=== PATIENT | female | born 1955 | race Caucasian/White ===

== ENCOUNTER 2023-03-18 14:10 | Outpatient (CLI) | payer MEDICARE, MEDICAID ==
--- NOTE | 2023-03-19 12:37 | Mammography Report ---
BILATERAL DIGITAL SCREENING MAMMOGRAM: 03/18/2023 CLINICAL: Routine screening. Comparison is made to exam dated: 02/26/2022 mammogram - [facility]. There are scattered areas of fibroglandular density in both breasts (category b / 25%-50% glandular t issue). There are benign calcifications in both breasts. No significant masses, calcifications, or other findings are seen in either breast. There has been no significant interval change. IMPRESSION: BENIGN There is no mammographic evidence of malignancy. A 1 year screening mammogram is recommended. Based on the Tyrer Cuzick model (a risk assessment model) the patients lifetime risk is 7.6% and her 10 year risk is 4.0%. According to the ACR, ACS, and NCCN guidelines, an annual breast MRI exam jesus g with mammogram is recommended if the patients lifetime risk is 20% or greater. This exam was interpreted at Station ID: [id number]. NOTE: For mammograms, a report in lay terms will be sent to the patient. Approximately 15% of breast malignancies will not be visualized mammographically. In the management of a palpable breast mass, a negative mammogram must not discourage biopsy of a clinically suspicious lesion. Electronically Signed By: Onur Dudley M.D. [email or web address]:03/18/2023 16:01:18 letter sent: No_Letter ACR BI-RADS Category 2: Benign Finding(s) 3342F PARENCHYMAL PATTERN: (A) - The breast(s) demonstrate(s) scattered fibroglandular densities. BI-RADS CATEGORY: (2) - 2 Mammogram [id number] 1 year screening LATERALITY: (B)
== END 2023-03-18 14:11 | disposition home or self-care (01) ==
LOC: DI.N 14:10
PROVIDERS: ATTEND Internal Medicine
DX: Z12.31 Encounter for screening mammogram for malignant neoplasm of breast (principal)

== ENCOUNTER 2024-03-10 10:24 | Outpatient (CLI) | payer MEDICARE, MEDICAID ==
--- NOTE | 2024-03-11 15:34 | Mammography Report ---
BILATERAL DIGITAL SCREENING MAMMOGRAM: 03/10/2024 CLINICAL: Routine screening. Comparison is made to exams dated: 03/18/2023 mammogram and 02/26/2022 mammogram - [facility]. There are scattered areas of fibroglandular density in both breasts (category b / 25%-50% glandular t issue). There are benign calcifications in both breasts. No significant masses, calcifications, or other findings are seen in either breast. There has been no significant interval change. IMPRESSION: BENIGN There is no mammographic evidence of malignancy. A 1 year screening mammogram is recommended. Based on the Tyrer Cuzick model (a risk assessment model) the patient's lifetime risk is 7.6% and her 10 year risk is 4.0%. According to the ACR, ACS, and NCCN guidelines, an annual breast MRI exam jesus g with mammogram is recommended if the patient's lifetime risk is 20% or greater. This exam was interpreted at Station ID: [id number]. NOTE: For mammograms, a report in lay terms will be sent to the patient. Approximately 15% of breast malignancies will not be visualized mammographically. In the management of a palpable breast mass, a negative mammogram must not discourage biopsy of a clinically suspicious lesion. Electronically Signed By: Heena love/traci:03/10/2024 15:46:02 letter sent: No_Letter ACR BI-RADS Category 2: Benign Finding(s) 3342F PARENCHYMAL PATTERN: (A) - The breast(s) demonstrate(s) scattered fibroglandular densities. BI-RADS CATEGORY: (2) - 2 RECOMMENDATION: (ANNUAL) - Recommend routine annual screening mammography. [id number] 1 year screening LATERALITY: (B)
== END 2024-03-10 10:25 | disposition home or self-care (01) ==
LOC: DI.N 10:24
PROVIDERS: ATTEND Internal Medicine
DX: Z12.31 Encounter for screening mammogram for malignant neoplasm of breast (principal); R92.323 Mammographic fibroglandular density, bilateral breasts

== ENCOUNTER 2024-08-11 15:54 | Inpatient (IN) ==
--- NOTE | 2024-08-11 16:01 | ED Physician Documentation ---
History of Present Illness Stated complaint Stated Complaint: LETHARGIC/CONFUSED Chief complaint Chief Complaint: Neuro History obtained from History obtained from: Patient and EMS Additonal information Additional information: 69-year-old woman with history of CAD a NANCY, dementia, depression, asthma and anxiety started Keflex yesterday for a UTI. [facility] and was quite sleepy and lethargic to the point where at 1 point they could not arouse her with a sternal rub. She is also more confused than normal. She is wheelchair-bound due to "weak legs." [place] Coma Scale Assess Eye opening: Spontaneous Verbal response: Confused Motor response: Obeys Commands Total score: 14 Meds/Allgy Home Medications Ambulatory Orders Medication Instructions Recorded Confirmed pravastatin 10 mg tablet 10 mg PO QDAY #90 tabs 05/19/24 08/10/24 acetaminophen 325 mg capsule 325 mg PO Q4H PRN fever or pain 07/28/24 08/10/24 albuterol sulfate 90 mcg/actuation 2 inh inhalation Q6H PRN shortness 07/28/24 08/10/24 breath activated powder inhaler of breath or wheezing cholecalciferol (vitamin D3) 25 25 mcg PO QDAY 07/28/24 08/10/24 mcg (1,000 unit) capsule cranberry extract 200 mg capsule 200 mg PO BID 07/28/24 08/10/24 diclofenac sodium 1 % topical gel 4 g topical QID 07/28/24 08/10/24 (Arthritis Pain (diclofenac)) donepezil 10 mg disintegrating 10 mg PO QDAY 07/28/24 08/10/24 tablet escitalopram oxalate 5 mg tablet 5 mg PO QDAY 07/28/24 08/10/24 hydroxyzine pamoate 25 mg capsule 25 mg PO BID PRN itching 07/28/24 08/10/24 (Vistaril) loperamide 1 mg/5 mL oral liquid 3 mg PO Q4H PRN loose stool 07/28/24 08/10/24 loratadine 10 mg disintegrating 10 mg PO QDAY 07/28/24 08/10/24 tablet promethazine 12.5 mg tablet 12.5 mg PO Q6H PRN nausea and 07/28/24 08/10/24 vomiting quetiapine 25 mg tablet 25 mg PO BID 07/28/24 08/10/24 cephalexin 500 mg capsule 500 mg PO BID 7 days #14 caps 08/10/24 08/10/24 Allergies Allergies Allergy/AdvReac Type Severity Reaction Status Date / Time Milk Containing Products Allergy Unknown Unknown Verified 08/11/24 16:09 (Dairy) soy Allergy Unknown Unknown Verified 08/11/24 16:09 ON LICENSE OF [facility] Medical History Medical History (Updated 08/11/24 @ 17:14 by Gilberto Olguin MD) Asthma Anxiety Obesity, class 3 Dementia in other diseases classified elsewhere, severe, with agitation Hyperlipidemia Depression, major, recurrent Urinary incontinence CADASIL (cerebral autosomal dominant arteriopathy with subcortical infarcts and leukoencephalopathy) Surgical History Surgical History (Updated 08/05/24 @ 14:30 by VASILE Alas) History of tonsillectomy History of cataract surgery (~2021) bilateral History of lithotripsy Family History Family History Aunt Breast cancer Mother Snoring Social History Social History Smoking Status: Never smoker Living arrangement: Assisted living Relationship: Home Mobility Equipment: Wheelchair Do you feel safe in your home environment?: Yes Suffered physical, verbal, emotional, or financial abuse?: No ETOH Use: None Substance Use: denies use Exam Constitutional normal general appearance and no apparent distress She is alert, oriented to person. When queried as to place she says [place], but can states she is in the hospital. Eyes EOMs intact bilaterally Smallish pupils but reactive Respiratory breath sounds equal bilaterally, normal respiratory effort and clear to auscultation bilaterally Cardiovascular normal heart rate noted, regular rhythm noted and no murmur Gastrointestinal abdomen soft to palpation and nontender to palpation Neurology GCS calculation - Eye opening: Spontaneous Verbal response: Confused Motor response: Obeys Commands [place] Coma Scale total score: 14 Results Vitals Vitals: Vital Signs - 24 hr 08/11/24 16:06 Temperature 33.7 C L Temperature Source Rectal Pulse Rate 73 Respiratory Rate 25 H Blood Pressure 139/119 H O2 Saturation 97 O2 Source Room air Pain Intensity 0 Oxygen O2 Source Room air Labs Labs: Laboratory Tests 08/11/24 08/11/24 08/11/24 16:18 16:23 16:28 WBC 6.5 RBC 4.50 Hgb 12.1 Hct 40.0 MCV 88.9 MCH 26.9 L MCHC 30.3 L RDW 15.1 H Plt Count 162 MPV 10.4 Neut # (Auto) 4.3 Lymph # (Auto) 1.4 L Fountain # (Auto) 0.5 Eos # (Auto) 0.2 Baso # (Auto) 0.0 Absolute Nucleated RBC 0.00 Nucleated RBC % 0.0 VBG pH 7.397 VBG pCO2 51.1 H VBG pO2 81.0 H VBG HCO3 31.4 H VBG Total CO2 33.0 H VBG O2 Saturation 96.0 H VBG Base Excess 7.0 H Sodium 139 Potassium 4.0 Chloride 103 Carbon Dioxide 30 Anion Gap 6.0 BUN 28 H Creatinine 0.8 Estimated GFR (MDRD) 71 L Glucose 94 Lactic Acid 0.8 Calcium 9.7 Total Bilirubin 0.3 AST 19 ALT 26 Alkaline Phosphatase 81 Ammonia 41.6 Total Protein 6.5 Albumin 3.9 Globulin 2.6 Albumin/Globulin Ratio 1.5 TSH 2.12 Urine Color YELLOW Urine Clarity CLEAR Urine pH 6.0 Ur Specific Dilley >=1.030 H Urine Protein TRACE Urine Glucose (UA) NEGATIVE Urine Ketones NEGATIVE Urine Occult Blood NEGATIVE Urine Nitrite NEGATIVE Urine Bilirubin NEGATIVE Urine Urobilinogen 1 (NORMAL) Ur Leukocyte Esterase TRACE H Urine RBC 0-5 Urine WBC >25 H Ur Squamous Epith Cells MANY Squamous H Urine Crystals 6-10 Calcium Oxalate Urine Bacteria Many H Ur Microscopic Review INDICATED Urine Culture Comments NOT INDICATED Urine Opiates Screen NEGATIVE Ur Buprenorphine Scrn NEGATIVE Ur Oxycodone Screen NEGATIVE Urine Methadone Screen NEGATIVE Ur Barbiturates Screen NEGATIVE Ur Tricyclics Screen POSITIVE H Ur Phencyclidine Scrn NEGATIVE Ur Amphetamine Screen NEGATIVE U Methamphetamines Scrn NEGATIVE U Benzodiazepines Scrn NEGATIVE Urine Cocaine Screen NEGATIVE U Cannabinoids Screen NEGATIVE Ur Drug Screen Comment CUTOFF CONC BELOW: Ethyl Alcohol < 10.0 Rads (name of study) CT of the head showing right maxillary sinusitis and small vessel ischemic change without acute findings otherwise.: Relevant Findings:: Final report received and EMP independent interpretation of test PD Medical Decision Making ED course ED course: This is a demented 69-year-old woman who presents from history class with much worse altered mental status than usual. She was diagnosed with UTI yesterday and started on Keflex. She is hypothermic and tachypneic, As such fit sepsis criteria. She was seen immediately upon arrival, blood cultures and basic labs obtained and CT head obtained without acute positive findings. She was administered IV Rocephin and IV fluids. She was placed on a Dorian hugger. Urine culture from yesterday growing group B strep Spoke with the hospitalist for admission at 5:15 PM. Discharge Plan Discharge Patient Disposition: 67 [facility] DC/Xfer Condition: Critical Clinical Impression: Hypothermia Altered mental status Qualifiers: Altered mental status type: unspecified Qualified Code(s): R41.82 - Altered mental status, unspecified Sepsis Qualifiers: Sepsis type: sepsis due to unspecified organism Sepsis acute organ dysfunction status: with acute organ dysfunction Severe sepsis acute organ dysfunction type: encephalopathy Severe sepsis shock status: without septic shock Qualified Code(s): A41.9 - Sepsis, unspecified organism Prescriptions: No Action pravastatin 10 mg tablet 10 mg PO QDAY Qty: 90 3RF cranberry extract 200 mg capsule 200 mg PO BID Patient Comments: Take 1 tablet in am and 3 tablets at hs. Rx Instructions: administer with meals donepezil 10 mg tablet,disintegrating 10 mg PO QDAY escitalopram oxalate 5 mg tablet 5 mg PO QDAY quetiapine 25 mg tablet 25 mg PO BID cholecalciferol (vitamin D3) 25 mcg (1,000 unit) capsule 25 mcg PO QDAY acetaminophen 325 mg capsule 325 mg PO Q4H PRN (Reason: fever or pain) Patient Comments: Take 2 tablets every 4 hours as needed for pain or fever. loperamide 1 mg/5 mL liquid 3 mg PO Q4H PRN (Reason: loose stool) Patient Comments: Take 15mls(3mg) by mouth as needed loose stools not to exceed 60mls in 24 hours. Rx Instructions: administer after each loose stool until symptoms controlled; do not exceed 8 mg per 24 hrs loratadine 10 mg tablet,disintegrating 10 mg PO QDAY promethazine 12.5 mg tablet 12.5 mg PO Q6H PRN (Reason: nausea and vomiting) albuterol sulfate 90 mcg/actuation aerosol powdr breath activated 2 inh inhalation Q6H PRN (Reason: shortness of breath or wheezing) diclofenac sodium [Arthritis Pain (diclofenac)] 1 % gel 4 g topical QID Rx Instructions: apply to single knee, ankle, foot; for foot includes sole/toes/top of foot hydroxyzine pamoate [Vistaril] 25 mg capsule 25 mg PO BID PRN (Reason: itching) Patient Comments: Take 1 capsule by mouth as needed no more than once per 8 hours. cephalexin 500 mg capsule 500 mg PO BID 7 Days Qty: 14 0RF Print Language: Colombian
[2024-08-11] MEDS: SODIUM CHLORIDE 0.9% 1,000 ML IV STA (16:21)
[2024-08-11] MEDS: cefTRIAXone 1 GM VIAL IVP STA (16:22)
[2024-08-11 16:28] LABS: BASOPHILS % (AUTO) 0.6 %; EOSINOPHILS # (AUTO) 0.2 10^3/uL (0.0-0.7); EOSINOPHILS % (AUTO) 2.9 %; HGB - HEMOGLOBIN 12.1 g/dL (12.0-16.0); LYMPHOCYTES # (AUTO) 1.4 10^3/uL (1.5-3.5); MEAN CORPUSCULAR HEMOGLOBIN 26.9 pg (27.0-31.0); MEAN CORPUSCULAR HGB CONC 30.3 g/dL (32.0-36.0); MEAN CORPUSCULAR VOLUME 88.9 fL (81.0-99.0); MEAN PLATELET VOLUME 10.4 fL (7.9-10.8); MONOCYTES # (AUTO) 0.5 10^3/uL (0.0-1.0); MONOCYTES % (AUTO) 7.5 %; NEUTROPHILS # (AUTO) 4.3 10^3/uL (1.5-6.6); NEUTROPHILS % (AUTO) 66.2 %; PLT - PLATELET COUNT 162 10^3/uL (130-450); RED CELL DISTRIBUTION WIDTH 15.1 % (12.0-15.0); WHITE BLOOD COUNT 6.5 x10^3/uL (4.8-10.8)
[2024-08-11 16:44] LABS: ALBUMIN 3.9 g/dL (3.2-5.5); ALBUMIN/GLOBULIN RATIO 1.5 (1.0-2.2); ALKALINE PHOSPHATASE 81 IU/L (42-121); ALT ALANINE AMINOTRANSFERASE 26 IU/L (10-60); AST ASPARTATE AMINOTRANSFERASE 19 IU/L (10-42); BILIRUBIN,TOTAL 0.3 mg/dL (0.2-1.0); BUN - BLOOD UREA NITROGEN 28 mg/dL (6-20); CALCIUM 9.7 mg/dL (8.5-10.3); CARBON DIOXIDE - CO2 30 mmol/L (21-32); CHLORIDE 103 mmol/L (101-111); CREATININE 0.8 mg/dL (0.6-1.3); ETOH - ETHANOL < 10.0 mg/dL; GFR - MDRD 71 (>89); GLUCOSE 94 mg/dL (74-104); SODIUM 139 mmol/L (135-145); TOTAL PROTEIN 6.5 g/dL (6.4-8.9)
[2024-08-11 16:46] LABS: VBG PH 7.397 (7.31-7.41)
[2024-08-11 16:47] LABS: VBG PCO2 51.1 mmHg (41-51)
[2024-08-11 16:52] LABS: BILIRUBIN,URINE NEGATIVE (NEGATIVE); GLUCOSE, URINE (UA) NEGATIVE (NEGATIVE); KETONES,URINE (UA) NEGATIVE (NEGATIVE); LEUKOCYTE ESTERASE, URINE TRACE (NEGATIVE); NITRITE,URINE NEGATIVE (NEGATIVE); OCCULT BLOOD,URINE NEGATIVE (NEGATIVE); PROTEIN,URINE TRACE mg/dL (NEGATIVE); UROBILINOGEN,URINE 1 (NORMAL) E.U./dL (NORMAL)
[2024-08-11 16:55] LABS: CLARITY,URINE CLEAR (CLEAR)
[2024-08-11 16:57] LABS: THYROID STIMULATING HORMONE 2.12 uIU/mL (0.34-5.60)
--- NOTE | 2024-08-11 17:01 | CT Report ---
PROCEDURE: CT Head WO INDICATIONS: ams TECHNIQUE: Noncontrast 4.5 mm thick angled axial sections acquired from the foramen magnum to the vertex. For r adiation dose reduction, the following was used: automated exposure control, adjustment of mA and/or kV according to patient size. COMPARISON: 09/03/2021. FINDINGS: Image quality: Excellent. CSF spaces: Basal cisterns are patent. No extra-axial fluid collections. Ventricles are normal in size and shape. Brain: No midline shift. No intracranial masses or hemorrhage. Simeon-white matter interface is norm al. Intracranial carotid calcifications. Age-related volume loss and severe small vessel ischemic ch rudolph, greater than expected for patient age, slightly progressive. Symmetric iron deposition in the b dash ganglia, an incidental finding. Skull and face: Calvarium and visualized facial bones are intact, without suspicious lesions. Sinuses: Worsening of right maxillary sinus disease with complete opacification of present. IMPRESSION: 1. Age-related volume loss and severe, greater than expected for patient age, mildly progressive smal l vessel ischemic change. 2. No acute intracranial process noted. 3. Right maxillary sinusitis. Sinus is completely opacified. Reviewed by: Chucho Valdes MD on 08/11/2024 5:00 PM PST Approved by: Chucho Valdes MD on 08/11/2024 5:00 PM PST Station ID: [id number]
[2024-08-11 17:07] LABS: BACTERIA,URINE Many /HPF (None Seen); RBC,URINE 0-5 /HPF (0-5); SQUAMOUS EPITHELIAL CELL,UR MANY Squamous (<= Few); WBC,URINE >25 /HPF (0-5)
[2024-08-11 17:08] LABS: AMPHETAMINE SCREEN,URINE NEGATIVE (NEGATIVE); BARBITURATE SCREEN,UR NEGATIVE (NEGATIVE); BENZODIAZEPINES SCREEN, URINE NEGATIVE (NEGATIVE); BUPRENORPHINE SCREEN, URINE NEGATIVE (NEGATIVE); COCAINE SCREEN URINE NEGATIVE (NEGATIVE); CRYSTALS,URINE 6-10 Calcium Oxalate /LPF; METHADONE SCREEN, URINE NEGATIVE (NEGATIVE); METHAMPHETAMINES SCREEN, URINE NEGATIVE (NEGATIVE); OPIATE SCREEN, URINE NEGATIVE (NEGATIVE); OXYCODONE SCREEN, URINE NEGATIVE (NEGATIVE); THC CANNABINOID SCREEN, URINE NEGATIVE (NEGATIVE); TRICYCLIC ANTIDEPRESSANT,URINE POSITIVE (NEGATIVE)
[2024-08-11] MEDS ORDERED: hydrOXYzine PAMOATE 25 MG CAPSULE PO PRN (17:37)
--- NOTE | 2024-08-11 17:47 | HISTORY & PHYSICAL EXAMINATION ---
Chief Complaint Chief Complaint Chief Complaint: Altered mental status History of Present Illness History of Present Illness HPI Comment/Other: This is a 61-year-old female with a history of CAD, dementia, depression, asthma and anxiety who presents to the ER with acute onset of altered mental status in the setting of diagnosed UTI yesterday. Today patient went to a history class at the [facility] and was quite sleepy and lethargic to the point where at 1 time she could not be aroused with sternal rubs. It also reported she was more confused than normal. She was seen by urgent care yesterday and was started on Keflex for UTI. CT head indicated age-related volume loss within expected for patient age, no acute renal processes noted, right maxillary sinusitis. Urine collected yesterday grew out beta-hemolytic strep group B. Labs are grossly Within normal limits. Patient was hypothermic upon arrival to the ED, heart rate 73 and respiratory rate of 25.Patient was started on a bear hugger in the ED. Patient received 1 dose of Rocephin in the ER. Patient denies chest pain, nausea, vomiting or abdominal pain. Patient is full code Meds/Allgy Home Medications Ambulatory Orders Medication Instructions Recorded Confirmed pravastatin 10 mg tablet 10 mg PO QDAY #90 tabs 05/19/24 08/10/24 acetaminophen 325 mg capsule 325 mg PO Q4H PRN fever or pain 07/28/24 08/10/24 albuterol sulfate 90 mcg/actuation 2 inh inhalation Q6H PRN shortness 07/28/24 08/10/24 breath activated powder inhaler of breath or wheezing cholecalciferol (vitamin D3) 25 25 mcg PO QDAY 07/28/24 08/10/24 mcg (1,000 unit) capsule cranberry extract 200 mg capsule 200 mg PO BID 07/28/24 08/10/24 diclofenac sodium 1 % topical gel 4 g topical QID 07/28/24 08/10/24 (Arthritis Pain (diclofenac)) donepezil 10 mg disintegrating 10 mg PO QDAY 07/28/24 08/10/24 tablet escitalopram oxalate 5 mg tablet 5 mg PO QDAY 07/28/24 08/10/24 hydroxyzine pamoate 25 mg capsule 25 mg PO BID PRN itching 07/28/24 08/10/24 (Vistaril) loperamide 1 mg/5 mL oral liquid 3 mg PO Q4H PRN loose stool 07/28/24 08/10/24 loratadine 10 mg disintegrating 10 mg PO QDAY 07/28/24 08/10/24 tablet promethazine 12.5 mg tablet 12.5 mg PO Q6H PRN nausea and 07/28/24 08/10/24 vomiting quetiapine 25 mg tablet 25 mg PO BID 07/28/24 08/10/24 cephalexin 500 mg capsule 500 mg PO BID 7 days #14 caps 08/10/24 08/10/24 Allergies Allergies Allergy/AdvReac Type Severity Reaction Status Date / Time Milk Containing Products Allergy Unknown Unknown Verified 08/11/24 16:09 (Dairy) soy Allergy Unknown Unknown Verified 08/11/24 16:09 [facility] Medical History Medical History (Updated 08/11/24 @ 17:55 by Westley Tamez DO) Asthma Anxiety Obesity, class 3 Dementia in other diseases classified elsewhere, severe, with agitation Hyperlipidemia Depression, major, recurrent Urinary incontinence CADASIL (cerebral autosomal dominant arteriopathy with subcortical infarcts and leukoencephalopathy) Surgical History Surgical History (Updated 08/05/24 @ 14:30 by VASILE Alas) History of tonsillectomy History of cataract surgery (~2021) bilateral History of lithotripsy Family History Family History Aunt Breast cancer Mother Snoring Social History Social History Smoking Status: Never smoker Living arrangement: Assisted living Relationship: Home Mobility Equipment: Wheelchair Do you feel safe in your home environment?: Yes Suffered physical, verbal, emotional, or financial abuse?: No ETOH Use: None Substance Use: denies use Review of Systems Status of ROS: 10 or more systems reviewed and unremarkable except as noted in history and below Exam Constitutional normal general appearance and no apparent distress HENMT normocephalic and head/scalp atraumatic Eyes PERRL and EOMs intact bilaterally Neck/C-Spine visual inspection normal and trachea midline Chest inspection of chest normal and palpation of chest normal Respiratory breath sounds equal bilaterally and normal respiratory effort Cardiovascular normal heart rate noted and regular rhythm noted Gastrointestinal abdomen normal to inspection and abdomen soft to palpation Extremities normal to inspection and normal to palpation Neurology restaurant manager II-XII intact Patient has dementia at baseline Psychiatry mental status grossly normal Skin skin color normal and no rash Conclusion/Plan Problem List (1) Hypothermia: Plan: On admission patient was hypothermic, at 33.733 C. She is now on an empiric hugger. Continue to monitor (2) Sepsis: Plan: Secondary to UTI GI, strep group B positive. IV fluids, antibiotics. Qualifiers: Sepsis acute organ dysfunction status: with acute organ dysfunction S epsis type: sepsis due to unspecified organism Severe sepsis acute organ dysfunction type: encephalopathy Severe sepsis shock status: without septic shock Qualified Code(s): A41.9 - Sepsis, unspecified organism; R65.20 - Severe sepsis without septic shock; G93.41 - Metabolic encephalopathy (3) Altered mental status: Plan: Resolved CT head shows no acute pathological processes. Qualifiers: Altered mental status type: unspecified Qualified Code(s): R41.82 - Altered mental status, unspecified (4) Recurrent UTI: Plan: Urine culture indicated strep group B bacteria. Continue Rocephin. (5) Obstructive sleep apnea: Plan: BiPAP at night as tolerated. Lab Results Lab results reviewed: Yes 08/11/24 16:18 08/11/24 16:18 Diagnostic Imaging Results Diagnostic Imaging Results: positive Final report reviewed
[2024-08-11] MEDS ORDERED: ALBUTEROL NEB 2.5 MG/3 ML INH PRN (17:50)
[2024-08-11] MEDS ORDERED: LOPERAMIDE ORAL SOLUTION 2 MG/15 ML UDC PO PRN (17:51)
[2024-08-11] MEDS ORDERED: PROCHLORPERAZINE 10 MG/2 ML VIAL IVP PRN (18:12)
[2024-08-11] MEDS ORDERED: HYDROmorphone 0.5 MG/0.5 ML SYRINGE IVP PRN (18:12)
[2024-08-11] MEDS: SODIUM CHLORIDE 0.9% 1,000 ML IV ONE (18:39)
[2024-08-11] MEDS: SODIUM CHLORIDE 0.9% 1,000 ML IV SCH (18:42)
[2024-08-11] MEDS: FAMOTIDINE 20 MG/2 ML VIAL IVP SCH (21:58)
[2024-08-11] MEDS: QUEtiapine 25 MG TABLET PO SCH (21:58)
[2024-08-11] MEDS: PRAVASTATIN 10 MG TABLET PO SCH (21:58)
[2024-08-11] MEDS: DICLOFENAC SODIUM 1% GEL 50 GM TUBE TOP SCH (22:05)
[2024-08-12] MEDS: ACETAMINOPHEN 325 MG TABLET PO PRN (01:29)
[2024-08-12] MEDS: SODIUM CHLORIDE FLUSH 0.9% 10 ML SYRINGE IVP SCH (01:51)
[2024-08-12 05:11] LABS: BASOPHILS # (AUTO) 0.1 10^3/uL (0.0-0.1); BASOPHILS % (AUTO) 0.8 %; EOSINOPHILS # (AUTO) 0.2 10^3/uL (0.0-0.7); EOSINOPHILS % (AUTO) 2.7 %; HGB - HEMOGLOBIN 11.6 g/dL (12.0-16.0); LYMPHOCYTES # (AUTO) 1.6 10^3/uL (1.5-3.5); MEAN CORPUSCULAR HEMOGLOBIN 27.2 pg (27.0-31.0); MEAN CORPUSCULAR HGB CONC 31.4 g/dL (32.0-36.0); MEAN CORPUSCULAR VOLUME 86.7 fL (81.0-99.0); MONOCYTES # (AUTO) 0.5 10^3/uL (0.0-1.0); MONOCYTES % (AUTO) 8.5 %; NEUTROPHILS # (AUTO) 3.9 10^3/uL (1.5-6.6); PLT - PLATELET COUNT 151 10^3/uL (130-450); RED BLOOD COUNT 4.27 10^6/uL (4.20-5.40); RED CELL DISTRIBUTION WIDTH 15.5 % (12.0-15.0); WHITE BLOOD COUNT 6.2 x10^3/uL (4.8-10.8)
[2024-08-12 05:29] LABS: CALCIUM 8.8 mg/dL (8.5-10.3); CREATININE 0.8 mg/dL (0.6-1.3)
[2024-08-12] MEDS ORDERED: SODIUM CHLORIDE 0.9% MINIBAG 100 ML IV ONE (08:39)
[2024-08-12] MEDS: cefTRIAXone 1 GM in SODIUM CHLORIDE 0.9% MINIBAG 100 ML IV SCH (08:54)
[2024-08-12] MEDS: DONEPEZIL 5 MG TABLET PO SCH (08:56)
[2024-08-12] MEDS: LORATADINE 10 MG TABLET PO SCH (08:56)
[2024-08-12] MEDS: ESCITALOPRAM 10 MG TABLET PO SCH (08:56)
[2024-08-12] MEDS: ENOXAPARIN 40 MG/0.4 ML SYRINGE SUBQ SCH (08:56)
--- NOTE | 2024-08-12 11:59 | Discharge Summary ---
Discharge Summary Admit Date: 08/11/24 Discharge Date: 08/13/24 Discharging Provider: aysha DIAGNOSES Admission Diagnoses: UTI Hypothermia Altered mental status Sleep apnea with CO2 retention Discharge Diagnoses with Status of Each Condition: UTI - Resolved Hypothermia - Resolved Altered mental status - Resolved Sleep apnea with CO2 retention - Plan for sleep study in September 2024 HPI History of Present Illness: This is a 61-year-old female with a history of CAD, dementia, depression, asthma and anxiety who presents to the ER with acute onset of altered mental status in the setting of diagnosed UTI yesterday. Today patient went to a history class at the [facility] and was quite sleepy and lethargic to the point where at 1 time she could not be aroused with sternal rubs. It also reported she was more confused than normal. She was seen by urgent care yesterday and was started on Keflex for UTI. CT head indicated age-related volume loss within expected for patient age, no acute renal processes noted, right maxillary sinusitis. Urine collected yesterday grew out beta-hemolytic strep group B. Labs are grossly Within normal limits. Patient was hypothermic upon arrival to the ED, heart rate 73 and respiratory rate of 25.Patient was started on a bear hugger in the ED. Patient received 1 dose of Rocephin in the ER. Patient denies chest pain, nausea, vomiting or abdominal pain. Patient is full code HOSPITAL COURSE Hospital Course: Patient recovered from UTI, Hypothermia and AMS quicker than expected. Pt was started on rocephin. Urine culture were positive for E-coli and Proteus. AMS was most likely multifactorial, including UTI and CO2 retention. Pt is scheduled for a sleep study in September 2023. Pt most likely will require a Cpap prn and cont. during night time, pt is discharged with a 7 day levofloxacin regimen. ALLERGIES Allergies Allergy/AdvReac Type Severity Reaction Status Date / Time Milk Containing Products Allergy Unknown Unknown Verified 08/11/24 16:09 (Dairy) soy Allergy Unknown Unknown Verified 08/11/24 16:09 MEDICATIONS Ambulatory Orders Medication Instructions Recorded Confirmed pravastatin 10 mg tablet 10 mg PO QDAY #90 tabs 05/19/24 08/12/24 acetaminophen 325 mg capsule 325 mg PO Q4H PRN fever or pain 07/28/24 08/12/24 albuterol sulfate 90 mcg/actuation 2 inh inhalation Q6H PRN shortness 07/28/24 08/12/24 breath activated powder inhaler of breath or wheezing cholecalciferol (vitamin D3) 25 25 mcg PO QDAY 07/28/24 08/12/24 mcg (1,000 unit) capsule cranberry extract 200 mg capsule 200 mg PO BID 07/28/24 08/12/24 diclofenac sodium 1 % topical gel 4 g topical QID 07/28/24 08/12/24 (Arthritis Pain (diclofenac)) escitalopram oxalate 5 mg tablet 5 mg PO QDAY 07/28/24 08/12/24 hydroxyzine pamoate 25 mg capsule 25 mg PO BID PRN itching 07/28/24 08/12/24 (Vistaril) loperamide 1 mg/5 mL oral liquid 3 mg PO Q4H PRN loose stool 07/28/24 08/12/24 loratadine 10 mg disintegrating 10 mg PO QDAY 07/28/24 08/12/24 tablet quetiapine 25 mg tablet 25 mg PO BID 07/28/24 08/12/24 albuterol sulfate 90 mcg/actuation 2 inh inhalation QID PRN shortness 08/12/24 08/12/24 aerosol inhaler (Ventolin HFA) of breath or wheezing donepezil 10 mg tablet 10 mg PO DAILY 08/12/24 08/12/24 levofloxacin 500 mg tablet 500 mg PO DAILY #7 tabs 08/12/24 PHYSICAL EXAM AT DISCHARGE General Appearance: positive No acute distress, Alert and Other (Dementia at baseline) Eyes Bilateral: positive Normal inspection and PERRL ENT: positive ENT inspection nml and Pharynx nml Neck: positive Nml inspection and Trachea midline Respiratory: positive Chest non-tender and No respiratory distress Cardiovascular: positive Regular rate & rhythm and No murmur Abdomen: positive Non-tender and No organomegaly Skin: positive Color nml and No rash Extremities: positive Non-tender and Full ROM Neurologic/Psychiatric: positive CN's nml (2-12) and Other (Dementia at baseline) LABS 08/13/24 04:45 08/13/24 04:45 DIAGNOSTIC IMAGING Diagnostic Imaging Results: Final report reviewed TIME SPENT Time Spent in Discharge (Minutes): 30 Discharge Plan Discharge Patient Disposition: LONG TERM, Self Care Condition: Critical Medically Cleared Date:: 08/13/24 Prescriptions: New levofloxacin 500 mg tablet 500 mg PO DAILY Qty: 7 0RF Rx Instructions: take one tablet with food once a day for 7 days Continued pravastatin 10 mg tablet 10 mg PO QDAY Qty: 90 3RF cranberry extract 200 mg capsule 200 mg PO BID Patient Comments: Take 1 tablet in am and 3 tablets at hs. Rx Instructions: administer with meals escitalopram oxalate 5 mg tablet 5 mg PO QDAY quetiapine 25 mg tablet 25 mg PO BID cholecalciferol (vitamin D3) 25 mcg (1,000 unit) capsule 25 mcg PO QDAY acetaminophen 325 mg capsule 325 mg PO Q4H PRN (Reason: fever or pain) Patient Comments: Take 2 tablets every 4 hours as needed for pain or fever. loperamide 1 mg/5 mL liquid 3 mg PO Q4H PRN (Reason: loose stool) Patient Comments: Take 15mls(3mg) by mouth as needed loose stools not to exceed 60mls in 24 hours. Rx Instructions: administer after each loose stool until symptoms controlled; do not exceed 8 mg per 24 hrs loratadine 10 mg tablet,disintegrating 10 mg PO QDAY albuterol sulfate 90 mcg/actuation aerosol powdr breath activated 2 inh inhalation Q6H PRN (Reason: shortness of breath or wheezing) diclofenac sodium [Arthritis Pain (diclofenac)] 1 % gel 4 g topical QID Rx Instructions: apply to single knee, ankle, foot; for foot includes sole/toes/top of foot hydroxyzine pamoate [Vistaril] 25 mg capsule 25 mg PO BID PRN (Reason: itching) Patient Comments: Take 1 capsule by mouth as needed no more than once per 8 hours. Discontinued cephalexin 500 mg capsule 500 mg PO BID 7 Days Qty: 14 0RF No Action donepezil 10 mg tablet 10 mg PO DAILY albuterol sulfate [Ventolin HFA] 90 mcg/actuation HFA aerosol inhaler 2 inh INHALATION QID PRN (Reason: shortness of breath or wheezing) Health Concerns: You are admitted for recurrent UTIs and hypothermia and altered mental status. Your urine grew out E. coli, Proteus. We started on antibiotics. Please continue levofloxacin for 7 days. Likely your altered mental status was multifactorial including UTI and CO2 retention. You are at risk for obstructive sleep apnea. You will have a sleep study in September of this year. Most likely you will require CPAP during nighttime sleeping. Print Language: [place] Patient Instructions: Snoring Sleep Apnea, UTI Stand Alone Forms: PCP List Follow-up Care: Jennifer Anderson MD [Primary Care Provider] -
[2024-08-12] MEDS: levoFLOXacin 250 MG TABLET PO SCH (13:02)
--- NOTE | 2024-08-12 14:04 | PROVIDER PROGRESS NOTE ---
Subjective Prog Note Date Prog Note Date: 08/12/24 Prog Note Time: 14:02 Subjective Subjective: This is a 61-year-old female with a history of CAD, dementia, depression, asthma and anxiety who presents to the ER with acute onset of altered mental status in the setting of diagnosed UTI yesterday. Today patient went to a history class at the [facility] and was quite sleepy and lethargic to the point where at 1 time she could not be aroused with sternal rubs. It also reported she was more confused than normal. She was seen by urgent care yesterday and was started on Keflex for UTI. CT head indicated age-related volume loss within expected for patient age, no acute renal processes noted, right maxillary sinusitis. Urine collected yesterday grew out beta-hemolytic strep group B. Labs are grossly Within normal limits. Patient was hypothermic upon arrival to the ED, heart rate 73 and respiratory rate of 25.Patient was started on a bear hugger in the ED. Patient received 1 dose of Rocephin in the ER. Patient denies chest pain, nausea, vomiting or abdominal pain. Patient is full code 08/12/2024: Patient recovered nicely. Patient feels well. Patient is back at baseline. Current Medications Current Medications Current Medications: Current Medications Generic Name Dose Route Start Last Admin Trade Name Freq PRN Reason Stop Dose Admin Acetaminophen 650 mg 08/11/24 18:12 08/12/24 01:29 Acetaminophen 325 Mg Tablet PO 650 mg Q4HR PRN Administration Pain 1 to 4, or Fever Albuterol 2.5 mg 08/11/24 17:50 Albuterol Neb 2.5 Mg/3 Ml INH RTQ4H PRN Wheezing Diclofenac Sodium 4 gm 08/11/24 21:00 08/12/24 13:02 Diclofenac Sodium 1% Gel 50 Gm Tube TOP 4 gm QID AMY Administration Donepezil HCl 10 mg 08/12/24 09:00 08/12/24 08:56 Donepezil 5 Mg Tablet PO 10 mg DAILY AMY Administration Enoxaparin Sodium 40 mg 08/12/24 09:00 08/12/24 08:56 Enoxaparin 40 Mg/0.4 Ml Syringe SUBQ 40 mg DAILY AMY Administration Escitalopram Oxalate 5 mg 08/12/24 09:00 08/12/24 08:56 Escitalopram 10 Mg Tablet PO 5 mg DAILY AMY Administration Famotidine 20 mg 08/11/24 21:00 08/12/24 08:56 Famotidine 20 Mg/2 Ml Vial IVP 20 mg BID AMY Administration Hydromorphone HCl 0.5 mg 08/11/24 18:12 Hydromorphone 0.5 Mg/0.5 Ml Syringe IVP Q2H PRN Pain 8 to 10 Hydroxyzine Pamoate 25 mg 08/11/24 17:37 Hydroxyzine Pamoate 25 Mg Capsule PO BID PRN itching Ceftriaxone Sodium 1 gm/ 100 mls @ 200 mls/hr 08/12/24 09:00 08/12/24 09:24 Sodium Chloride IV Infused DAILY AMY Infusion Sodium Chloride 1,000 mls @ 100 mls/hr 08/11/24 18:12 08/12/24 12:28 Normal Saline 0.9% IV Infused .Q10H AMY Infusion Levofloxacin 500 mg 08/12/24 13:00 08/12/24 13:02 Levofloxacin 250 Mg Tablet PO 500 mg DAILY AMY Administration Loperamide HCl 2 mg 08/11/24 17:51 Loperamide Oral Solution 2 Mg/15 Ml Udc PO Q4H PRN loose stool Loratadine 10 mg 08/12/24 09:00 08/12/24 08:56 Loratadine 10 Mg Tablet PO 10 mg DAILY AMY Administration Pravastatin Sodium 10 mg 08/11/24 21:00 08/11/24 21:58 Pravastatin 10 Mg Tablet PO 10 mg QPM AMY Administration Prochlorperazine Edisylate 10 mg 08/11/24 18:12 Prochlorperazine 10 Mg/2 Ml Vial IVP Q6HR PRN Nausea / Vomiting Quetiapine Fumarate 25 mg 08/11/24 21:00 08/12/24 08:56 Quetiapine 25 Mg Tablet PO 25 mg BID AMY Administration Sodium Chloride 10 ml 08/11/24 18:12 Sodium Chloride Flush 0.9% 10 Ml Syringe IVP PRN PRN NEEDED PER PROVIDER ORDERS Sodium Chloride 10 ml 08/12/24 01:00 08/12/24 08:57 Sodium Chloride Flush 0.9% 10 Ml Syringe IVP 10 ml 0100,0900,1700 AMY Administration Objective Vital Signs/Intake & Output Reviewed Vital Signs: Yes Vital Signs: Vital Signs x48h Pulse Resp BP Pulse Ox 08/12/24 12:55 94 17 157/84 H 94 08/12/24 09:00 118 H 19 144/61 H 90 L Intake & Output: Intake & Output 08/09/24 08/10/24 08/11/24 08/12/24 23:59 23:59 23:59 23:59 Intake Total 1000 / 1000 1964 / 1964 Output Total 645 / 645 Balance 980 / 980 1320 / 1320 Weight (kg) 107 kg Objective General Appearance: positive No acute distress and Alert Eyes Bilateral: positive Normal inspection and PERRL ENT: positive ENT inspection nml Neck: positive Nml inspection and Trachea midline Respiratory: positive Chest non-tender and No respiratory distress Cardiovascular: positive Regular rate & rhythm and No murmur Abdomen: positive Non-tender and No organomegaly Skin: positive Color nml and No rash Extremities: positive Non-tender and Full ROM Neurologic/Psychiatric: positive Other (Baseline dementia) Lab Results 08/12/24 04:55 08/12/24 04:55 Other Labs: Lab Results x24hrs 08/12/24 08/11/24 08/11/24 Range/Units 04:55 16:28 16:23 WBC 6.2 (4.8-10.8) x10^3/uL RBC 4.27 (4.20-5.40) 10^6/uL Hgb 11.6 L (12.0-16.0) g/dL Hct 37.0 (37.0-47.0) % MCV 86.7 (81.0-99.0) fL MCH 27.2 (27.0-31.0) pg MCHC 31.4 L (32.0-36.0) g/dL RDW 15.5 H (12.0-15.0) % Plt Count 151 (130-450) 10^3/uL MPV 10.0 (7.9-10.8) fL Neut # (Auto) 3.9 (1.5-6.6) 10^3/uL Lymph # (Auto) 1.6 (1.5-3.5) 10^3/uL [place] # (Auto) 0.5 (0.0-1.0) 10^3/uL Eos # (Auto) 0.2 (0.0-0.7) 10^3/uL Baso # (Auto) 0.1 (0.0-0.1) 10^3/uL Absolute Nucleated RBC 0.00 x10^3/uL Nucleated RBC % 0.0 /100WBC VBG pH (7.31-7.41) VBG pCO2 (41-51) mmHg VBG pO2 (25-47) mmHg VBG HCO3 (23-28) mmol/L VBG Total CO2 (24-29) mmol/L VBG O2 Saturation (60-80) % VBG Base Excess (-2 - +2) mmol/L Sodium 139 (135-145) mmol/L Potassium 4.0 (3.5-4.5) mmol/L Chloride 106 (101-111) mmol/L Carbon Dioxide 28 (21-32) mmol/L Anion Gap 5.0 L (6-13) BUN 22 H (6-20) mg/dL Creatinine 0.8 (0.6-1.3) mg/dL Estimated GFR (MDRD) 71 L (>89) Glucose 77 (74-104) mg/dL Lactic Acid 0.8 (0.5-2.2) mmol/L Calcium 8.8 (8.5-10.3) mg/dL Total Bilirubin (0.2-1.0) mg/dL AST (10-42) IU/L ALT (10-60) IU/L Alkaline Phosphatase (42-121) IU/L Ammonia 41.6 (18-72) umol/L Total Protein (6.4-8.9) g/dL Albumin (3.2-5.5) g/dL Globulin (2.1-4.2) g/dL Albumin/Globulin Ratio (1.0-2.2) TSH (0.34-5.60) uIU/mL Urine Color YELLOW Urine Clarity CLEAR (CLEAR) Urine pH 6.0 (5.0-7.5) PH Ur Specific [place] >=1.030 H (1.002-1.030) Urine Protein TRACE (NEGATIVE) mg/dL Urine Glucose (UA) NEGATIVE (NEGATIVE) mg/dL Urine Ketones NEGATIVE (NEGATIVE) mg/dL Urine Occult Blood NEGATIVE (NEGATIVE) Urine Nitrite NEGATIVE (NEGATIVE) Urine Bilirubin NEGATIVE (NEGATIVE) Urine Urobilinogen 1 (NORMAL) (NORMAL) E.U./dL Ur Leukocyte Esterase TRACE H (NEGATIVE) Urine RBC 0-5 (0-5) /HPF Urine WBC >25 H (0-5) /HPF Ur Squamous Epith Cells MANY Squamous H (<= Few) Urine Crystals 6-10 Calcium Oxalate /LPF Urine Bacteria Many H (None Seen) /HPF Ur Microscopic Review INDICATED Urine Culture Comments NOT INDICATED Urine Opiates Screen NEGATIVE (NEGATIVE) Ur Buprenorphine Scrn NEGATIVE (NEGATIVE) Ur Oxycodone Screen NEGATIVE (NEGATIVE) Urine Methadone Screen NEGATIVE (NEGATIVE) Ur Barbiturates Screen NEGATIVE (NEGATIVE) Ur Tricyclics Screen POSITIVE H (NEGATIVE) Ur Phencyclidine Scrn NEGATIVE (NEGATIVE) Ur Amphetamine Screen NEGATIVE (NEGATIVE) U Methamphetamines Scrn NEGATIVE (NEGATIVE) U Benzodiazepines Scrn NEGATIVE (NEGATIVE) Urine Cocaine Screen NEGATIVE (NEGATIVE) U Cannabinoids Screen NEGATIVE (NEGATIVE) Ur Drug Screen Comment CUTOFF CONC BELOW: Ethyl Alcohol mg/dL 08/11/24 Range/Units 16:18 WBC 6.5 (4.8-10.8) x10^3/uL RBC 4.50 (4.20-5.40) 10^6/uL Hgb 12.1 (12.0-16.0) g/dL Hct 40.0 (37.0-47.0) % MCV 88.9 (81.0-99.0) fL MCH 26.9 L (27.0-31.0) pg MCHC 30.3 L (32.0-36.0) g/dL RDW 15.1 H (12.0-15.0) % Plt Count 162 (130-450) 10^3/uL MPV 10.4 (7.9-10.8) fL Neut # (Auto) 4.3 (1.5-6.6) 10^3/uL Lymph # (Auto) 1.4 L (1.5-3.5) 10^3/uL [place] # (Auto) 0.5 (0.0-1.0) 10^3/uL Eos # (Auto) 0.2 (0.0-0.7) 10^3/uL Baso # (Auto) 0.0 (0.0-0.1) 10^3/uL Absolute Nucleated RBC 0.00 x10^3/uL Nucleated RBC % 0.0 /100WBC VBG pH 7.397 (7.31-7.41) VBG pCO2 51.1 H (41-51) mmHg VBG pO2 81.0 H (25-47) mmHg VBG HCO3 31.4 H (23-28) mmol/L VBG Total CO2 33.0 H (24-29) mmol/L VBG O2 Saturation 96.0 H (60-80) % VBG Base Excess 7.0 H (-2 - +2) mmol/L Sodium 139 (135-145) mmol/L Potassium 4.0 (3.5-4.5) mmol/L Chloride 103 (101-111) mmol/L Carbon Dioxide 30 (21-32) mmol/L Anion Gap 6.0 (6-13) BUN 28 H (6-20) mg/dL Creatinine 0.8 (0.6-1.3) mg/dL Estimated GFR (MDRD) 71 L (>89) Glucose 94 (74-104) mg/dL Lactic Acid (0.5-2.2) mmol/L Calcium 9.7 (8.5-10.3) mg/dL Total Bilirubin 0.3 (0.2-1.0) mg/dL AST 19 (10-42) IU/L ALT 26 (10-60) IU/L Alkaline Phosphatase 81 (42-121) IU/L Ammonia (18-72) umol/L Total Protein 6.5 (6.4-8.9) g/dL Albumin 3.9 (3.2-5.5) g/dL Globulin 2.6 (2.1-4.2) g/dL Albumin/Globulin Ratio 1.5 (1.0-2.2) TSH 2.12 (0.34-5.60) uIU/mL Urine Color Urine Clarity (CLEAR) Urine pH (5.0-7.5) PH Ur Specific [place] (1.002-1.030) Urine Protein (NEGATIVE) mg/dL Urine Glucose (UA) (NEGATIVE) mg/dL Urine Ketones (NEGATIVE) mg/dL Urine Occult Blood (NEGATIVE) Urine Nitrite (NEGATIVE) Urine Bilirubin (NEGATIVE) Urine Urobilinogen (NORMAL) E.U./dL Ur Leukocyte Esterase (NEGATIVE) Urine RBC (0-5) /HPF Urine WBC (0-5) /HPF Ur Squamous Epith Cells (<= Few) Urine Crystals /LPF Urine Bacteria (None Seen) /HPF Ur Microscopic Review Urine Culture Comments Urine Opiates Screen (NEGATIVE) Ur Buprenorphine Scrn (NEGATIVE) Ur Oxycodone Screen (NEGATIVE) Urine Methadone Screen (NEGATIVE) Ur Barbiturates Screen (NEGATIVE) Ur Tricyclics Screen (NEGATIVE) Ur Phencyclidine Scrn (NEGATIVE) Ur Amphetamine Screen (NEGATIVE) U Methamphetamines Scrn (NEGATIVE) U Benzodiazepines Scrn (NEGATIVE) Urine Cocaine Screen (NEGATIVE) U Cannabinoids Screen (NEGATIVE) Ur Drug Screen Comment Ethyl Alcohol < 10.0 mg/dL Assessment/Plan Problem List (1) Hypothermia: Impression: resolved (2) Sepsis: Impression: resolved Continue ABX Qualifiers: Sepsis acute organ dysfunction status: with acute organ dysfunction S epsis type: sepsis due to unspecified organism Severe sepsis acute organ dysfunction type: encephalopathy Severe sepsis shock status: without septic shock Qualified Code(s): A41.9 - Sepsis, unspecified organism; R65.20 - Severe sepsis without septic shock; G93.41 - Metabolic encephalopathy (3) Altered mental status: Impression: resolved Likely secondary to sepsis - UTI versus CHF Retention in the background of sleep apnea CT head shows no acute pathological processes. Qualifiers: Altered mental status type: unspecified Qualified Code(s): R41.82 - Altered mental status, unspecified (4) Recurrent UTI: Impression: Urine culture indicated E. coli and Proteus. Continue patient on antibiotics, will be going home tomorrow on Levaquin. (5) Obstructive sleep apnea: Impression: BiPAP as tolerated during nighttime Patient is scheduled for sleep study in September 2023.
--- NOTE | 2024-08-12 14:42 | PHARMACY PROGRESS NOTE ---
Best Possible Medication History Admit Date and Time: 08/11/24 1737 Home Medications Medication Instructions Recorded Confirmed Type pravastatin 10 mg tablet 10 mg PO QDAY #90 tabs 05/19/24 08/12/24 Rx acetaminophen 325 mg capsule 325 mg PO Q4H PRN fever or pain 07/28/24 08/12/24 History albuterol sulfate 90 mcg/actuation 2 inh inhalation Q6H PRN shortness 07/28/24 08/12/24 History breath activated powder inhaler of breath or wheezing cholecalciferol (vitamin D3) 25 25 mcg PO QDAY 07/28/24 08/12/24 History mcg (1,000 unit) capsule cranberry extract 200 mg capsule 200 mg PO BID 07/28/24 08/12/24 History diclofenac sodium 1 % topical gel 4 g topical QID 07/28/24 08/12/24 History (Arthritis Pain (diclofenac)) escitalopram oxalate 5 mg tablet 5 mg PO QDAY 07/28/24 08/12/24 History hydroxyzine pamoate 25 mg capsule 25 mg PO BID PRN itching 07/28/24 08/12/24 History (Vistaril) loperamide 1 mg/5 mL oral liquid 3 mg PO Q4H PRN loose stool 07/28/24 08/12/24 History loratadine 10 mg disintegrating 10 mg PO QDAY 07/28/24 08/12/24 History tablet quetiapine 25 mg tablet 25 mg PO BID 07/28/24 08/12/24 History albuterol sulfate 90 mcg/actuation 2 inh inhalation QID PRN shortness 08/12/24 08/12/24 History aerosol inhaler (Ventolin HFA) of breath or wheezing donepezil 10 mg tablet 10 mg PO DAILY 08/12/24 08/12/24 History levofloxacin 500 mg tablet 500 mg PO DAILY #7 tabs 08/12/24 Rx Processed by: Pharmacy Medications reviewed in ED?: No Medication History completed: Yes Patient Interview: Completed Secondary Source(s): Other family member and Insurance records [facility] Statement: Pt interview with family member present, reviewed med list and [employer] records. As the person ultimately responsible for medication therapy, providers are able to order a medication from an existing home medication list in [facility] via the "Reconcile Routine" prior to Confirmation of that medication by direct support worker. Such practice is discouraged except when the physician, in their clinical judgment, deems that a medical need exists for a medication without regard to previous use.
[2024-08-13] MEDS: SODIUM CHLORIDE FLUSH 0.9% 10 ML SYRINGE IVP PRN (04:05)
[2024-08-13 05:42] LABS: BASOPHILS % (AUTO) 0.7 %; EOSINOPHILS # (AUTO) 0.2 10^3/uL (0.0-0.7); EOSINOPHILS % (AUTO) 3.8 %; HCT - HEMATOCRIT 40.9 % (37.0-47.0); HGB - HEMOGLOBIN 12.2 g/dL (12.0-16.0); LYMPHOCYTES % (AUTO) 35.8 %; MEAN CORPUSCULAR HEMOGLOBIN 27.2 pg (27.0-31.0); MEAN CORPUSCULAR HGB CONC 29.8 g/dL (32.0-36.0); MEAN CORPUSCULAR VOLUME 91.1 fL (81.0-99.0); MEAN PLATELET VOLUME 12.2 fL (7.9-10.8); MONOCYTES # (AUTO) 0.5 10^3/uL (0.0-1.0); MONOCYTES % (AUTO) 9.1 %; NEUTROPHILS # (AUTO) 2.7 10^3/uL (1.5-6.6); NEUTROPHILS % (AUTO) 49.3 %; PLT - PLATELET COUNT 77 10^3/uL (130-450); RED BLOOD COUNT 4.49 10^6/uL (4.20-5.40); RED CELL DISTRIBUTION WIDTH 15.6 % (12.0-15.0); WHITE BLOOD COUNT 5.5 x10^3/uL (4.8-10.8)
[2024-08-13 06:03] LABS: CALCIUM 9.1 mg/dL (8.5-10.3); CREATININE 0.8 mg/dL (0.6-1.3); POTASSIUM 3.8 mmol/L (3.5-4.5)
[2024-08-13 09:46] VITALS: BP 171/96; TEMP 98.2; O2SAT 95
== END 2024-08-13 11:30 | disposition home or self-care (01) | DRG 871 ==
LOC: ED 15:54 → ICU 17:37
PROVIDERS: ADMIT Internal Medicine; ATTEND Internal Medicine
DX: R65.20 Severe sepsis without septic shock; G47.33 Obstructive sleep apnea (adult) (pediatric); A41.9 Sepsis, unspecified organism; Z68.41 Body mass index [BMI] 40.0-44.9, adult; E66.813 Obesity, class 3; R68.0 Hypothermia, not associated with low environmental temperature; F02.C11 Dementia in other diseases classified elsewhere, severe, with agitation; I25.10 Atherosclerotic heart disease of native coronary artery without angina pectoris; J45.909 Unspecified asthma, uncomplicated; F41.9 Anxiety disorder, unspecified; B96.20 Unspecified Escherichia coli [E. coli] as the cause of diseases classified elsewhere; E78.5 Hyperlipidemia, unspecified; B96.4 Proteus (mirabilis) (morganii) as the cause of diseases classified elsewhere; Z79.899 Other long term (current) drug therapy; N39.0 Urinary tract infection, site not specified; F33.9 Major depressive disorder, recurrent, unspecified; G93.41 Metabolic encephalopathy; A40.1 Sepsis due to streptococcus, group B